=== PATIENT | male | born 1955 | race Caucasian/White ===

== ENCOUNTER 2019-10-04 14:41 | Outpatient (CLI) | payer OTHER ==
[2019-10-04] MEDS ORDERED: PROB500T22 PO (15:14)
[2019-10-04] MEDS ORDERED: SIMV10TA18 PO (15:14)
[2019-10-04] MEDS ORDERED: AMLO-150 PO (15:14)
[2019-10-04] MEDS ORDERED: RIVA20TA PO (15:14)
[2019-10-04] MEDS ORDERED: METO50TA82 PO (15:14)
[2019-10-04] MEDS ORDERED: OMEP-110 PO (15:14)
[2019-10-04] MEDS ORDERED: MULT-658 PO (15:31)
== END 2019-10-04 23:59 | disposition home or self-care (01) ==
LOC: STAR 14:41
PROVIDERS: ATTEND Orthopaedic Surgery
DX: Z01.818 Encounter for other preprocedural examination (principal); Z11.59 Encounter for screening for other viral diseases; M21.6X1 Other acquired deformities of right foot; M25.371 Other instability, right ankle; I48.91 Unspecified atrial fibrillation
CPT/HCPCS: 93005; U0001

== ENCOUNTER 2019-10-08 11:11 | Observation (INO) | payer OTHER ==
[~2019-10-08] VITALS: Ht 188 cm; Wt 124.3 kg
[~2019-10-08 11:11] MED LIST: AMLO-150 PO; METO50TA82 PO; MULT-658 PO; OMEP-110 PO; PROB500T22 PO; RIVA20TA PO; SIMV10TA18 PO
[2019-10-08 11:37] VITALS: BP 143/88
[2019-10-08] MEDS ORDERED: LACTATED RINGERS 1,000 ML IV SCH ×2 (11:43→23:45)
[2019-10-08] MEDS ORDERED: CHLORHEXIDINE 15 ML UDC ONE (11:49)
[2019-10-08] MEDS ORDERED: CHLORHEXIDINE 15 ML UDC MM ONE (12:00)
[2019-10-08] MEDS ORDERED: FENTANYL PF 250 MCG/5ML ONE (12:07)
[2019-10-08] MEDS ORDERED: MIDAZOLAM 1 MG/ML, 2ML ONE (12:07)
[2019-10-08] MEDS ORDERED: BUPIVACAINE LIPOSOME/PF 10ML INFIL ONE (12:43)
[2019-10-08] MEDS ORDERED: EPHEDRINE 50 MG/ML, 1ML ONE (13:25)
[2019-10-08] MEDS ORDERED: ROCURONIUM 10 MG/ML,10ML ONE (13:25)
[2019-10-08] MEDS ORDERED: PROMETHAZINE 25 MG SUPP PR PRN (14:00)
[2019-10-08] MEDS ORDERED: DIAZEPAM 5 MG/ML, 2ML IVPush PRN (14:00)
[2019-10-08] MEDS ORDERED: FENTANYL PF 100 MCG/2ML IV PRN (14:00)
[2019-10-08] MEDS ORDERED: OXYcodone 5 MG/5 ML ORAL.SOL UDC PO PRN (14:00)
[2019-10-08] MEDS ORDERED: ACETAMINOPHEN 325 MG TABLET PO PRN (14:00)
[2019-10-08] MEDS ORDERED: PROMETHAZINE 25 MG/ML, 1ML IVPush PRN (14:00)
[2019-10-08] MEDS ORDERED: LORazepam 2 MG/ML, 1ML IVPush PRN (14:00)
[2019-10-08] MEDS ORDERED: ALBUTEROL/IPRATROPIUM 2.5MG/0.5MG, 3 ML NPPB PRN (14:00)
[2019-10-08] MEDS ORDERED: METOPROLOL 1 MG/ML, 5ML IV PRN (14:00)
[2019-10-08] MEDS ORDERED: ONDANSETRON 2MG/ML, 2ML IVPush PRN ×2 (14:00→21:00)
[2019-10-08] MEDS ORDERED: FENTANYL PF 100 MCG/2ML ONE ×2 (15:53→16:15)
[2019-10-08] MEDS ORDERED: DEXAMETHASONE 4 MG/ML, 1ML ONE (16:01)
[2019-10-08] MEDS ORDERED: CEFAZOLIN 1,000 MG ONE (16:01)
[2019-10-08] MEDS ORDERED: ONDANSETRON 2MG/ML, 2ML ONE (16:01)
[2019-10-08] MEDS ORDERED: PROPOFOL 10 MG/ML, 20ML ONE (16:01)
[2019-10-08] MEDS ORDERED: OXYcodone 5 MG/5 ML ORAL.SOL UDC ONE (16:15)
[2019-10-08] MEDS: HYDROmorphone 1 MG/ML, 1ML INJ IVPush PRN ×2 (19:30→20:40)
[2019-10-08] MEDS ORDERED: morphine SULFATE 10 MG/ML, 1ML IVPush PRN (21:00)
[2019-10-08] MEDS ORDERED: OXYcodone IR 5MG TABLET PO PRN (21:00)
[2019-10-08 22:00] VITALS: BP 157/91
[2019-10-08] MEDS: CEFAZOLIN PMX 2GM/50ML 50 ML IVPB SCH (23:57)
[2019-10-09] MEDS ORDERED: METOPROLOL TARTRATE 50 MG TAB PO ONE
[2019-10-09] MEDS ORDERED: CEFAZOLIN 2,000 MG in SODIUM CHLORIDE 0.9% 50 ML IV SCH
[2019-10-09 00:04] VITALS: BP 116/70
[2019-10-09] MEDS ORDERED: OMEPRAZOLE 20 MG CAPSULE.DR PO SCH (06:00)
[2019-10-09] MEDS ORDERED: RIVAROXABAN 20 MG TABLET PO SCH (08:00)
[2019-10-09] MEDS: CEFAZOLIN PMX 2GM/50ML 50 ML IVPB SCH (08:03)
[2019-10-09 08:56] VITALS: BP 139/76
[2019-10-09] MEDS ORDERED: METOPROLOL TARTRATE 50 MG TAB PO SCH (09:00)
[2019-10-09] MEDS ORDERED: AMLODIPINE 5 MG TABLET PO SCH (09:00)
[2019-10-09] MEDS ORDERED: MULTIVITAMIN 1 TABLET PO SCH (09:00)
[2019-10-09] MEDS ORDERED: PROBENECID 500 MG TABLET PO SCH (09:00)
[2019-10-09] MEDS ORDERED: SIMVASTATIN 10 MG TABLET PO SCH (21:00)
== END 2019-10-09 09:46 | disposition home or self-care (01) ==
LOC: OUT 11:11 → 4NE 20:40 → OUT 22:41
PROVIDERS: ADMIT Orthopaedic Surgery; ATTEND Orthopaedic Surgery
DX: M96.0 Pseudarthrosis after fusion or arthrodesis (principal); M19.90 Unspecified osteoarthritis, unspecified site; J45.909 Unspecified asthma, uncomplicated; I48.91 Unspecified atrial fibrillation; Z98.1 Arthrodesis status; Z87.891 Personal history of nicotine dependence
CPT/HCPCS: 28725; 73620; 76000; 87070; 87075; 87205; 96365; 96366; C1713; C1762; G0378; J0690; J1100; J1170; J2250; J2405; J2704; J3010; J7120